=== PATIENT | male | born 1965 | race Caucasian/White ===

== ENCOUNTER → 2019-09-07 | Day surgery (SDC) | payer OTHER ==
[2019-09-04 13:08] LABS: BASOPHILS # (AUTO) 0.1 (0.0-0.1); BASOPHILS % 0.5 % (0.0-1.0); EOSINOPHILS # (AUTO) 0.3 (0.0-0.4); EOSINOPHILS % 3.1 % (0.0-6.0); HEMATOCRIT 42.5 % (38.2-49.6); HEMOGLOBIN 14.1 g/dL (14.0-18.0); LYMPHOCYTES # (AUTO) 2.5 (1.0-3.2); LYMPHOCYTES % 26.2 % (18.0-39.1); MEAN CORPUSCULAR HEMOGLOBIN 30.9 pg (28-32); MEAN CORPUSCULAR HGB CONC 33.2 g/dL (31-35); MEAN CORPUSCULAR VOLUME 93.2 fL (81-99); MONOCYTES # (AUTO) 0.9 (0.2-0.8); MONOCYTES % 9.2 % (4.4-11.3); NEUTROPHILS # (AUTO) 5.7 (2.1-6.9); NEUTROPHILS % 60.7 % (38.7-80.0); PLATELET COUNT 316 x10e3/uL (140-360); RED BLOOD COUNT 4.56 x10e6/uL (4.3-5.7); RED CELL DISTRIBUTION WIDTH 13.4 % (11.7-14.4)
[2019-09-04 13:23] LABS: ANION GAP 16.1 mmol/L (8-16); BLOOD UREA NITROGEN 10 mg/dL (7-26); BUN/CREATININE RATIO 12 (6-25); CALCIUM 10.2 mg/dL (8.4-10.2); CARBON DIOXIDE 25 mmol/L (22-29); CHLORIDE 99 mmol/L (98-107); CREATININE, SERUM 0.81 mg/dL (0.72-1.25); EST GLOMERULAR FILTRATION RATE > 60 ML/MIN (60-); GLUCOSE 87 mg/dL (74-118); POTASSIUM 4.1 mmol/L (3.5-5.1); SODIUM 136 mmol/L (136-145)
--- NOTE | 2019-09-04 13:38 | Diagnostic Imaging Report ---
Chest, PA and lateral. History: Preoperative evaluation for toe surgery. Comparison: None available. Discussion: The cardiomediastinal silhouette and pulmonary vasculature are within normal limits. The lungs are clear without evidence of consolidation or effusion. There are no acute osseous abnormalities. The soft tissues are unremarkable. IMPRESSION: No radiographic evidence of acute cardiopulmonary abnormality. Signed by: Mark Rose MD on 09/04/2019 1:35 PM
[~2019-09-07] MED LIST: ASPIR 8181 MG PO; BUPIVACAINE HCL 0.5% INJ 30 ML VIAL INJ ONE; CEFAZOLIN SOD 1 GM/NS 50ML 100 ML IV ONE; DEXAMETHASONE SOD PHOS INJ 4 MG/ML VIAL ONE; FENTANYL CITRATE/PF 100MCG/2 ML INJ ONE; INDOMETHACIN25 MG PO; KETOROLAC TROMETHAMINE 30 MG/ML VIAL ONE; LIDOCAINE HCL 2% LOCAL INJ 5 ML SDV VIAL INJ ONE; LIPITOR10 MG PO; LISINOPRIL10 MG PO; MIDAZOLAM HCL 2 MG/2 ML VIAL ONE; NEOSTIGMINE 1 MG/ML 10ML VIAL ONE; NOVOLOG MI100 UNIT/1 SC; ONDANSETRON HCL INJ 2MG/ML 2ML 2 MG/ML VIAL ONE; PROPOFOL IV EMULSION 10 MG/ML 20 ML VIAL ONE; SEVOFLURANE INHAL SOLN 250 ML PEN BTL ONE; SYNJARDY 12.5-1 EACH SC; TESTOSTERO30 MG/1.5 INJ; TRESIBA100 UNIT/1 SC; VIT D PO
--- OUTSIDE RECORDS SUMMARY | 2019-09-07 06:46 | XMS REPORT ---
Author Author [facility] Address Unknown Phone Unavailable Care Team Providers Care Medical Records Receptionist Name Role Phone LIZZIE BAILEY Unavailable Unavailable Problems This patient has no known problems. Allergies, Adverse Reactions, Alerts This patient has no known allergies or adverse reactions. Medications This patient has no known medications. Results Test Description Test Time Test Comments Text Results Atomic Results Result Comments CHEST 2 VIEWS 2019-09-04 13:27:00 [place] [address] Patient Name: VIJAYA CERVANTES JR MR #: [id number] : 1965 Age/Sex: 53/M Req #: [id number] Adm Physician: Ordered by: LIZZIE BAILEY DPM Report #: [id number] Location: OR Room/Bed: Procedure: [id number] DX/CHEST 2 VIEWS Exam Date: Exam Time: REPORT STATUS: Signed Chest, PA and lateral. History: Preoperative evaluation for toe surgery. Comparison: None available. Discussion: The cardiomediastinal silhouette and pulmonary vasculature are within normal limits. The lungs are clear without evidence of consolidation or effusion. There are no acute osseous abnormalities. The soft tissues are unremarkable. IMPRESSION: No radiographic evidence of acute cardiopulmonary abnormality. Signed by: Mark Sher MD on 09/04/2019 1:35 PM Dictated By: MARK SHER MD [id number] Transcribed By: GÉNESIS on 09/04/19 COPY TO: LIZZIE BAILEY DPM
[2019-09-07 10:15] VITALS: BP 111/79
--- NOTE | 2019-09-07 22:57 | Operative Report ---
DATE OF PROCEDURE: 09/07/2019 SURGEON: Luis Boo DPM ROOM NUMBER: [facility]. PREOPERATIVE DIAGNOSIS: Hallux abductovalgus deformity with severe degenerative joint disease and hallux limitus. POSTOPERATIVE DIAGNOSIS: Hallux abductovalgus deformity with severe degenerative joint disease and hallux limitus. OPERATION: Dorsal cheilectomy with Cartiva implant first metatarsophalangeal joint of the left foot with human tissue allograft. PROCEDURE IN DETAIL: The patient was taken operating room in a mildly sedated state and placed upon the operating table in supine position. Following induction of general anesthetic, the left lower extremity was elevated to 60 degrees to exsanguinate before inflating the pneumatic thigh tourniquet to 350 mmHg to create hemostasis. Left lower extremity placed on the operating table prior to following procedure. Procedure #1 is the dorsal cheilectomy of the left foot with Cartiva implant. A linear longitudinal incision was made overlying the dorsal medial aspect of the 1st metatarsophalangeal joint of the left foot. The incision was deepened via sharp and blunt dissection down to the level of dorsal capsular structure. Care was taken to identify and retract all vital structures encountered. The head of the first metatarsal was delivered in surgical site and remodeled utilizing oscillating saw, a rotary bur and rongeur was noted that there was bone on bone articulation. It was also noted that the fibular sesamoid was very arthritic and did not allow for an adequate dorsiflexion of the hallux on the 1st metatarsal even once the adhesions had been released with McGlamry elevator. The fibular sesamoid was then further dissected and resected from the wound as it was arthritic, enlarged and creating an impediment to pain-free range of motion. Once removed, the area was irrigated with copious amounts of sterile saline solution. Utilizing standard technique, the distal metatarsal was drilled with a Cartiva implant positioning device and the Cartiva implant was inserted utilizing standard technique. It was left approximately 2 mm proud to create the appropriate joint spacing. The area was then once again irrigated and a further remodeling of the bone was performed, irrigated again. Human tissue allograft was applied to the area of the surrounding joint bone and wound. The deep tissues were closed with a combination of 3-0 Vicryl, 4-0 Vicryl and 4-0 nylon. The areas of surgery were blocked with 0.5 Marcaine Decadron [place] released the pneumatic thigh tourniquet showed a normal hyperemic flush to all digits of the left foot. The patient left the operating room, vital signs stable in apparent satisfactory condition and tolerated both anesthetic procedure very well. MANUEL Singer/RUBA /[id number]
== END | disposition home or self-care (01) ==
LOC: OR 06:42
PROVIDERS: ATTEND Podiatrist Foot Surgery
DX: M20.12 Hallux valgus (acquired), left foot (principal); M19.072 Primary osteoarthritis, left ankle and foot; E11.9 Type 2 diabetes mellitus without complications; I10 Essential (primary) hypertension; F17.210 Nicotine dependence, cigarettes, uncomplicated; Z01.810 Encounter for preprocedural cardiovascular examination; Z01.812 Encounter for preprocedural laboratory examination; Z01.818 Encounter for other preprocedural examination; Z79.82 Long term (current) use of aspirin; Z79.4 Long term (current) use of insulin; Z79.84 Long term (current) use of oral hypoglycemic drugs
CPT/HCPCS: 28291; 36415 ×2; 71046; 80048; 82948; 85025; 93005; J0690; J1100; J1885; J2001; J2250; J2405; J2704; J2710; J3010; Q4100 ×2